=== PATIENT | male | born 1970 | race Caucasian/White ===

== ENCOUNTER 2017-04-04 01:43 | Emergency (ER) | payer OTHER ==
[2017-04-04 02:04] VITALS: RESP 20
[2017-04-04 04:05] VITALS: BP 117/78; PULSE 76; TEMP 98.5; O2SAT 97
--- NOTE | 2017-04-04 04:09 | C.PDOC ---
History Of Present Illness 47 year old male with a Hx of MS diagnosed in 2010 presents to the ER with a complaint of intermittent weakness to the right leg and intermittent dizziness. Patient reports he has not been on any treatments for several years and notes the symptoms are currently not present; he states he is here mainly because he has been experiencing back pain that has not improved after taking OTC medication. Denies vision change, headache, numbness, chest pain, SOB, or focal deficits. Time Seen by Provider: 04/04/17 01:50 Chief Complaint (Nursing): Back Pain History Per: Patient History/Exam Limitations: no limitations Onset/Duration Of Symptoms: Hrs Current Symptoms Are (Timing): Still Present Quality Of Discomfort: Unable To Describe Previous Symptoms: None Associated Symptoms: None Recent travel outside of the [place]: No Past Medical History Reviewed: Historical Data, Nursing Documentation, Vital Signs Vital Signs: Last Vital Signs Temp 98.5 F 04/04/17 04:03 Pulse 76 04/04/17 04:03 Resp 20 04/04/17 04:03 BP 117/78 04/04/17 04:03 Pulse Ox 97 04/04/17 04:24 Family History: States: Unknown Family Hx - Social History Hx Alcohol Use: Yes Hx Substance Use: Yes Review Of Systems Eyes: Negative for: Vision Change Cardiovascular: Negative for: Chest Pain Respiratory: Negative for: Shortness of Breath Musculoskeletal: Positive for: Back Pain Neurological: Positive for: Weakness, Dizziness. Negative for: Numbness, Headache Physical Exam - Physical Exam Appears: Well, Non-toxic, No Acute Distress Skin: Normal Color, Warm, Dry Head: Atraumatic, Normacephalic Eye(s): bilateral: Normal Inspection Nose: Normal Oral Mucosa: Moist Neck: Normal, No Midline Cervical Tenderness, No Paracervical Tenderness, Supple Chest: Symmetrical, No Tenderness Cardiovascular: Rhythm Regular Respiratory: Normal Breath Sounds, No Rales, No Rhonchi, No Wheezing Gastrointestinal/Abdominal: Soft, No Tenderness Back: No CVA Tenderness, No Vertebral Tenderness, No Paraspinal Tenderness Extremity: Normal ROM (x4) Neurological/Psych: Oriented x3, Normal Speech, Normal Motor, Normal Sensation, Other (No focal deficits) Gait: Steady ED Course And Treatment O2 Sat by Pulse Oximetry: 97 (room air) Pulse Ox Interpretation: Normal Medical Decision Making Medical Decision Making: Toradol and solumedrol administered. The patient has no focal deficits and does not require admission at this time. On reevaluation, patient is resting comfortably in the ER in no acute distress, able to ambulate without any difficulty. Patient instructed to follow up with his neurologist or PMD for further MS management or return if symptoms worsen. Disposition - Disposition Referrals: [facility] at [facility] [Outside] Disposition: HOME/ ROUTINE Disposition Time: 04:05 Condition: GOOD Additional Instructions: Follow up with the medical doctor within 1-2 days, Return if worsened. Prescriptions: diaZEpam [Valium] 5 mg PO TID #21 tab Naproxen [Naprosyn] 500 mg PO BID #20 tab Instructions: Acute Low Back Pain (DC) Forms: [employer] (Estonian) - Clinical Impression Clinical Impression: Low back strain - PA / DIRECT MARKETING ANALYST / Resident Statement MD/DO has reviewed & agrees with the documentation as recorded. - Scribe Statement The provider has reviewed the documentation as recorded by the Scribe Sg Saeed All medical record entries made by the Scribe were at my direction and personally dictated by me. I have reviewed the chart and agree that the record accurately reflects my personal performance of the history, physical exam, medical decision making, and the department course for this patient. I have also personally directed, reviewed, and agree with the discharge instructions and disposition.
== END 2017-04-04 04:20 | disposition home or self-care (01) ==
LOC: C.ER 01:43
DX: S39.012A Strain of muscle, fascia and tendon of lower back, initial encounter (principal); X58.XXXA Exposure to other specified factors, initial encounter; Y92.9 Unspecified place or not applicable
CPT/HCPCS: 96374; 96375; 99284; J1885; J2930